=== PATIENT | male | born 1960 | race Caucasian/White ===

== ENCOUNTER 2019-01-10 07:33 | Observation (INO) ==
[2019-01-03 11:41] LABS: URINE SOURCE VOIDED
[2019-01-03 11:49] LABS: BASO# 0.04 X1000 (0.0-0.2); BASO% 0.6 % (0.0-0.8); EOS# 0.22 X1000 (0.0-0.7); EOS% 3.5 % (0.0-10.0); HEMATOCRIT 44.1 % (42.0-52.0); HEMOGLOBIN 15.1 g/dL (14.0-18.0); IMM GRAN# 0.06 X1000 (0.0-0.04); LYMPH# 1.93 X1000 (1.2-3.4); LYMPH% 30.9 % (20.5-51.1); MCH 28.6 PG (27-31); MCHC 34.2 g/dL (33-37); MCV 83.5 FL (81-99); MONO# 0.49 X1000 (0.11-0.59); MONO% 7.9 % (1.7-9.3); MPV 10.2 FL (7.4-10.4); NEUT% 56.1 % (42.2-75.2); PLT 205 X1000 (130-400); RBC 5.28 XMIL (4.7-6.1); RDW 13.8 % (11.5-14.5); WBC 6.24 X1000 (4.8-10.8)
[2019-01-03 11:50] LABS: BILIRUBIN URINE NEGATIVE (NEGATIVE); BLOOD URINE NEGATIVE (NEGATIVE); COLOR YELLOW; GLUCOSE URINE NEGATIVE (NEGATIVE); KETONE URINE NEGATIVE (NEGATIVE); LEUKOCYTES URINE NEGATIVE (NEGATIVE); NITRITE URINE NEGATIVE (NEGATIVE); PROTEIN URINE NEGATIVE (NEGATIVE); SP GRAVITY URINE 1.019; TURBIDITY URINE CLEAR (CLEAR); UROBILINOGEN URINE NORMAL (NORMAL)
[2019-01-03 11:51] LABS: UR EPITHELIAL CELLS <10 /HPF (<10); URINE BACTERIA NEGATIVE /HPF; URINE RBC <10 /HPF (<10); URINE WBC <10 /HPF (<10)
[2019-01-03 11:59] LABS: INR 0.94; PROTIME 13.3 Seconds (11.0-16.0)
[2019-01-03 12:00] LABS: PTT 28.5 Seconds (22.3-41.8)
--- NOTE | 2019-01-03 12:09 | EKG Report ---
Test Performed on : 01/03/2019 11:12:13 AM Test Reason : PAT Blood Pressure : / mmHG Vent. Rate : 056 BPM Atrial Rate : 056 BPM P-R Int : 184 ms QRS Dur : 096 ms QT Int : 402 ms P-R-T Axes : 055 038 044 degrees QTc Int : 387 ms Sinus bradycardia. with blocked premature atrial complexes. Otherwise normal ECG When compared with ECG of 12-JAN-2018 00:40, premature atrial complexes. are now present Vent. rate has decreased BY 48 BPM QT has shortened Confirmed by Nigel NIETO, Serge Rojas ([id number]) on 01/03/2019 3:01:51 PM
[2019-01-03 12:29] LABS: AGAP 10; BUN 14 mg/dL (8-22); CALCIUM 8.8 mg/dL (8.8-10.2); CHLORIDE 103 mmol/L (98-107); COSMO 276; CREATININE 1.2 mg/dL (0.7-1.2); ESTIMATED GFR > 60; GLUCOSE 98 mg/dL (70-104); POTASSIUM 3.9 mmol/L (3.5-5.1); SODIUM 138 mmol/L (136-145); TCO2 25 mmol/L (25-35)
[2019-01-10] MEDS ORDERED: XYLOCAINE-MPF 2% ONE (07:50)
[2019-01-10] MEDS ORDERED: DECADRON ONE (07:50)
[2019-01-10] MEDS ORDERED: ZOFRAN ONE (07:50)
[2019-01-10] MEDS ORDERED: FENTANYL ONE (07:50)
[2019-01-10] MEDS ORDERED: ROBINUL ONE (07:50)
[2019-01-10] MEDS ORDERED: DIPRIVAN 1% ONE ×2 (07:50→09:11)
[2019-01-10] MEDS ORDERED: COLACE ONE (07:52)
[2019-01-10] MEDS ORDERED: REGLAN ONE (07:52)
[2019-01-10] MEDS ORDERED: PEPCID ONE (07:52)
[2019-01-10] MEDS ORDERED: LYRICA ONE (07:52)
[2019-01-10] MEDS ORDERED: CELEBREX ONE (07:52)
[2019-01-10] MEDS ORDERED: KEFZOL 1 GM/D5W 2 GM/100 ML IVPB ONE (07:53)
[2019-01-10] MEDS ORDERED: LR 1,000 ML ONE (07:53)
[2019-01-10] MEDS ORDERED: OFIRMEV 1000 MG/ISOTONIC SOLN 1,000 MG/100 ML BOTTLE ONE (08:57)
[2019-01-10] MEDS ORDERED: MARCAINE 0.25% PF ONE (09:04)
[2019-01-10] MEDS ORDERED: DURAMORPH ONE (09:04)
[2019-01-10] MEDS ORDERED: VANCOMYCIN ONE (09:04)
[2019-01-10] MEDS ORDERED: SODIUM CHLORIDE 0.9% ONE (09:04)
[2019-01-10] MEDS ORDERED: CYKLOKAPRON 1,000 MG/NS 1,000 MG/100 ML IVPB ONE ×2 (09:04→09:06)
[2019-01-10] MEDS ORDERED: TORADOL ONE (09:04)
[2019-01-10] MEDS ORDERED: NEOSPORIN G.U. IRRIGANT ONE (09:05)
[2019-01-10] MEDS ORDERED: EXPAREL 1.3% ONE (09:05)
[2019-01-10] MEDS ORDERED: VERSED ONE (09:21)
[2019-01-10 10:29] LABS: URINE SOURCE CATH
--- NOTE | 2019-01-10 11:26 | OPERATIVE NOTE ---
PROCEDURE DATE: 01/10/2019 PREOPERATIVE DIAGNOSIS: Degenerative joint disease, right knee. POSTOPERATIVE DIAGNOSIS: Degenerative joint disease, right knee. PROCEDURE PERFORMED: Right total knee replacement. SURGEON: Nalini Ruth MD. SUPERVISOR [employer]OR [employer]SEMBLY: DOLORES Ivan. Mr. Boone was necessary for proper retraction and manipulation during the case. ANESTHESIA: Spinal. COMPLICATION: None. PROCEDURE IN DETAIL: This 58-year-old male presents for surgical right knee replacement. Risks, benefits, and no guarantees were discussed, and he is willing to proceed. He was taken to the operating room and satisfactory anesthesia obtained. The right leg was prepped and draped in the usual sterile fashion. A time-out was taken to confirm operative site, procedure and patient. The leg was wrapped with an Esmarch, and tourniquet inflated to 350 mmHg. A midline incision was made over the front of the knee followed by quad tendon sparing arthrotomy. The patella was everted and resurfaced with freehand technique. With the patella subluxed laterally, the knee was flexed. An intramedullary hole made in the distal femur, and the distal femoral cutting block secured in 5 degrees of valgus. Distal femoral resection was made and the femur sized to a size 8 DePuy Attune femoral implant. The 4-in-1 block was secured and the anterior, posterior, and chamfer cuts sequentially made. A notch created for posterior stabilized design using the provided notch guide. Any remaining osteophytes were debrided from the femur. A PCL retractor was placed behind the tibia to protect the neurovascular bundle with the knee flexed, and the tibial cutting block secured using extramedullary alignment. Tibial resection was made and flexion-extension gaps were roughly equal at 6 mm. The tibia was sized to a size 8 tibial tray. Trial reduction was performed with a size 8 tibial tray, a size 8 cruciate stabilized femoral component, and the patella was sized to a 41 medialized dome patella. Good range of motion and stability was noted with a 6 mm spacer polyethylene bearing trial. All trial components were removed after final prep of the implants. The bony surfaces were thoroughly irrigated with pulsatile lavage. The knee was then thoroughly irrigated and dried. Cement with a gram of vancomycin was then utilized to cement a size 8 rotating platform tibial tray, a size 8 right posterior stabilized femoral component, and a 41 medialized dome patella. While the cement cured, the joint capsule was injected with Exparel and a Hemovac drain placed. Afterwards, any excess cement was removed around the prosthesis as necessary, and the size 8 posterior stabilized polyethylene bearing, 6 mm thick, was inserted into the tibial tray and the knee reduced. Final range of motion was 0 to 130 degrees with midline patellar tracking. The arthrotomy was copiously irrigated with irrigant and closed in layers with a #1 Vicryl in the arthrotomy, 2-0 Vicryl in the subcutaneous, and skin larisa on the skin edges. Sterile dressings completed the closure, and the patient was recovered from anesthesia and transferred to the recovery room in stable condition. No intraoperative complications were noted. Instrument count and sponge count were correct at the time of closure. cc: Bill Ruth MD
[2019-01-10 11:32] LABS: BILIRUBIN URINE NEGATIVE (NEGATIVE); BLOOD URINE TRACE (NEGATIVE); COLOR YELLOW; GLUCOSE URINE NEGATIVE (NEGATIVE); KETONE URINE NEGATIVE (NEGATIVE); PROTEIN URINE NEGATIVE (NEGATIVE); SP GRAVITY URINE > 1.030; TURBIDITY URINE HAZY (CLEAR); UR EPITHELIAL CELLS <10 /HPF (<10); URINE BACTERIA NEGATIVE /HPF; URINE RBC <10 /HPF (<10); URINE WBC <10 /HPF (<10)
[2019-01-10 11:33] LABS: LEUKOCYTES URINE NEGATIVE (NEGATIVE); NITRITE URINE NEGATIVE (NEGATIVE); UROBILINOGEN URINE NORMAL (NORMAL)
[2019-01-10] MEDS ORDERED: NS 1,000 ML ONE (12:03)
--- NOTE | 2019-01-10 12:42 | Diag Imaging Result Doc PS360 ---
EXAM: KNEE 1-2 VIEWS-RIGHT 01/10/2019 HISTORY: R TKA TECHNIQUE: Right knee two views COMMENT: There is a total knee arthroplasty no evidence of fracture or dislocation is present. IMPRESSION: Postsurgical changes. Electronically signed by Mark Cisse 01/10/2019 12:40 PM
[2019-01-10] MEDS ORDERED: ZOFRAN IV PRN (13:15)
[2019-01-10] MEDS ORDERED: ZOFRAN ODT PO PRN (13:15)
[2019-01-10] MEDS ORDERED: MORPHINE IV PRN ×3 (13:15)
[2019-01-10] MEDS ORDERED: OXY IR PO PRN (13:15)
[2019-01-10] MEDS: ULTRAM PO SCH ×2 (14:10→20:24)
[2019-01-10] MEDS: TYLENOL PO SCH ×2 (14:10→20:26)
[2019-01-10] MEDS: NS 1,000 ML IV SCH (14:13)
[2019-01-10] MEDS: OXY IR PO PRN ×3 (15:35→21:46)
[2019-01-10] MEDS: KEFZOL 2 GM/D5W 2 GM/50 ML IVPB IV SCH (17:36)
--- NOTE | 2019-01-10 18:04 | ORTHOPAEDICS PROGRESS NOTE ---
DATE: 01/10/2019 Mr. Cole is seen status post total knee replacement. He is comfortable at the present time. His postop x-rays look good. His bandage is clean and dry. There are no signs of complications. He appears to be motor and sensory intact. Vital signs are stable. We will plan on mobilizing him and discontinuing lines in the near future and discharge home after he has mobilized well. cc: Bill Ruth MD
[2019-01-10] MEDS: PERIDEX MT SCH (20:23)
[2019-01-10] MEDS: CELEBREX PO SCH (20:25)
[2019-01-10] MEDS: TAMBOCOR PO SCH (20:26)
[2019-01-10] MEDS: COLACE PO SCH (20:26)
[2019-01-11] MEDS: KEFZOL 2 GM/D5W 2 GM/50 ML IVPB IV SCH (01:16)
[2019-01-11] MEDS: NS 1,000 ML IV SCH ×2 (01:17→02:42)
[2019-01-11] MEDS: ULTRAM PO SCH ×2 (02:00→08:45)
[2019-01-11] MEDS: TYLENOL PO SCH ×2 (02:00→08:44)
[2019-01-11 06:30] LABS: HEMATOCRIT 39.9 % (42.0-52.0); HEMOGLOBIN 13.8 g/dL (14.0-18.0)
[2019-01-11 07:00] LABS: AGAP 11; BUN 15 mg/dL (8-22); CHLORIDE 105 mmol/L (98-107); COSMO 279; CREATININE 0.9 mg/dL (0.7-1.2); ESTIMATED GFR > 60; GLUCOSE 146 mg/dL (70-104); POTASSIUM 4.4 mmol/L (3.5-5.1); SODIUM 138 mmol/L (136-145); TCO2 22 mmol/L (25-35)
--- NOTE | 2019-01-11 08:04 | ORTHOPAEDICS PROGRESS NOTE ---
DATE: 01/11/2019 SUBJECTIVE: Mr. Cole is seen today, postoperative day 1, status post total knee replacement. OBJECTIVE: He is afebrile with stable vital signs. His bandage is clean and dry. He is doing well from pain management standpoint. ASSESSMENT AND PLAN: We will plan on discontinuing all lines and mobilizing him. He can be discharged home and follow up with us in roughly 10 days. He will receive home therapy. He is to continue his regular medicine, as well as aspirin 325 b.i.d. for deep vein thrombosis prophylaxis and [place] 10 as needed for pain. We have placed him on Bactrim as needed for wound prophylaxis. We will see him back in roughly 1-1/2 weeks or sooner for any worsening signs or symptoms. cc: Bill Ruth MD
[2019-01-11 08:10] VITALS: BP 123/80
[2019-01-11] MEDS: COLACE PO SCH (08:44)
[2019-01-11] MEDS: TAMBOCOR PO SCH (08:44)
[2019-01-11] MEDS: PERIDEX MT SCH (08:44)
[2019-01-11] MEDS: CELEBREX PO SCH (08:44)
[2019-01-11] MEDS ORDERED: PEPCID PO SCH (09:00)
[2019-01-11] MEDS ORDERED: ASPIRIN PO SCH (09:00)
[2019-01-11] MEDS ORDERED: LOPRESSOR PO SCH (09:00)
[2019-01-11] MEDS: OXY IR PO PRN (13:52)
== END 2019-01-11 14:05 | disposition home or self-care (01) ==
LOC: OPS 07:33 → 4N 07:33
PROVIDERS: ADMIT Orthopaedic Surgery Adult Reconstructive Orthopaedic Surgery; ATTEND Orthopaedic Surgery Adult Reconstructive Orthopaedic Surgery
CPT/HCPCS: 73560; 80048; 81001; 85014; 85018; 85025; 85610; 85730; 86850; 86900; 86901; 88305; 88311; 93005; 93010; 94760; 94761; 94799; 97162; 97530; A9270; C9290; J0131; J0690; J1100; J1885; J2250; J2270; J2274; J2275; J2405; J3010; J3370; J7030; J7120; Q9974; S0020